=== PATIENT | female | born 1950 | race Hispanic/Latino ===

== ENCOUNTER 2017-08-29 03:48 | Emergency (ER) | payer SELFPAY ==
--- NOTE | 2017-08-29 04:55 | C.PDOC ---
History Of Present Illness The patient presents to the ED for evaluation of sudden right shoulder pain which began while she was sleeping earlier today. Patient denies fever, chills, falls, trauma/injury to the affected area. Time Seen by Provider: 08/29/17 04:37 Chief Complaint (Nursing): Upper Extremity Problem/Injury History Per: Patient History/Exam Limitations: no limitations Onset/Duration Of Symptoms: Hrs, Sudden Onset Current Symptoms Are (Timing): Still Present Quality: "Pain" Severity: Mild Pain Scale Rating Of: 2 Exacerbating Factor(s): Nothing Recent travel outside of the [place]: No Additional History Per: Patient Past Medical History Reviewed: Historical Data, Nursing Documentation, Vital Signs Vital Signs: Last Vital Signs Temp 97.8 F 08/29/17 06:21 Pulse 85 08/29/17 06:45 Resp 20 08/29/17 06:45 BP 132/72 08/29/17 06:45 Pulse Ox 100 08/29/17 06:45 - Medical History PMH: HTN Surgical History: No Surg Hx Family History: States: Unknown Family Hx - Social History Hx Alcohol Use: No Hx Substance Use: No - Immunization History Hx Tetanus Toxoid Vaccination: No Hx Influenza Vaccination: No Hx Pneumococcal Vaccination: No Review Of Systems Constitutional: Negative for: Fever, Chills Cardiovascular: Negative for: Chest Pain, Palpitations Respiratory: Negative for: Cough, Shortness of Breath Musculoskeletal: Positive for: Shoulder Pain (right ) Skin: Negative for: Rash, Lesions, Jaundice, Bruising Neurological: Negative for: Weakness, Numbness Physical Exam - Physical Exam Appears: Non-toxic, No Acute Distress Skin: Warm, Dry Head: Normacephalic Neck: Supple Chest: Symmetrical, No Deformity, No Tenderness Cardiovascular: Rhythm Regular, No Murmur Respiratory: No Accessory Muscle Use Extremity: No Normal ROM (limited, secondary to pain ), Tenderness (right shoulder ), Capillary Refill (less than 2 seconds ), No Deformity (step down deformity) Pulses: Right Brachial: Normal Neurological/Psych: Oriented x3 Gait: Steady ED Course And Treatment O2 Sat by Pulse Oximetry: 96 (on RA) Pulse Ox Interpretation: Normal - Other Rad shoulder X-Ray: Interpreted by Me, Viewed By Me (dislocated, no fracture) Progress Note: Right shoulder XR ordered and reviewed. Motrin PO administered. Reevaluation Time: 06:56 Reassessment Condition: Improved Orthopedic Time Performed: 06:30 Time Out: Side verified Procedure: Joint reduction Location: Right, Arm Consent obtained: Written Performed by: Attending Physician Diagnosis: Dislocation Bone: Humerus Anesthetic Technique: Procedural sedation Procedural Sedation: Propofol Capillary refill: Normal Distal Sensation: Normal Distal Motor Function: Normal Capillary Refill: Normal Compartment: Normal Distal Sensation: Normal Distal Motor Function: Normal Post-reduction Radiograph: Good Alignment Patient tolerated procedure: Well Disposition Counseled Patient/Family Regarding: Studies Performed, Diagnosis, Need For Followup - Disposition Referrals: Juan Manuel London MD [Staff Provider] - Disposition: HOME/ ROUTINE Disposition Time: 04:53 Condition: IMPROVED Instructions: Shoulder Dislocation (ED), Shoulder Manipulation (GEN) Forms: [employer] (Italian) Print Language: FAROESE - Clinical Impression Clinical Impression: Shoulder dislocation - Scribe Statement The provider has reviewed the documentation as recorded by the Scribe (Natalie Castillo) Provider Attestation: All medical record entries made by the Scribe were at my direction and personally dictated by me. I have reviewed the chart and agree that the record accurately reflects my personal performance of the history, physical exam, medical decision making, and the department course for this patient. I have also personally directed, reviewed, and agree with the discharge instructions and disposition.
[2017-08-29] MEDS ORDERED: Morphine 4 MG/ML VIAL ONE ×2 (05:13→05:35)
[2017-08-29] MEDS ORDERED: Propofol 10 mg/ml Inj (20 ML) ONE (06:22)
[2017-08-29] MEDS ORDERED: Propofol 10 mg/ml Inj (20 ML) IV ONE (07:12)
[2017-08-29 07:30] VITALS: RESP 16
--- NOTE | 2017-08-29 08:17 | RAD ---
PROCEDURE: HISTORY: post reduction COMPARISON: 08/29/2017 at 0456 hours TECHNIQUE: Single frontal view labeled "Postreduction" FINDINGS: The previously anterior inferiorly dislocated right humeral head from the glenoid fossa is not reproduced anatomically aligned IMPRESSION: Successful postreduction
--- NOTE | 2017-08-29 08:19 | RAD ---
PROCEDURE: Radiographs of the Right Shoulder HISTORY: pain COMPARISON: No prior. FINDINGS: BONES: Humeral head anterior inferiorly dislocated from the glenoid fossa. No gross fracture appreciated. Acromioclavicular joint space narrowing. Cervical apophyseal joint hypertrophic arthrosis. JOINTS: Arthrosis as above SOFT TISSUES: Normal. OTHER FINDINGS: None. IMPRESSION: Anterior inferior right shoulder dislocation. No fracture appreciated
[2017-08-29 08:58] VITALS: BP 122/71; PULSE 98; TEMP 97.9; O2SAT 96
== END 2017-08-29 08:58 | disposition home or self-care (01) ==
LOC: C.ER 03:48
DX: S43.084A Other dislocation of right shoulder joint, initial encounter (principal); X58.XXXA Exposure to other specified factors, initial encounter
CPT/HCPCS: 23650; 73020; 73030; 96374; 96375; 99285; J2270; J2405